=== PATIENT | female | born 1960 | race Caucasian/White ===

== ENCOUNTER 2017-10-18 14:49 | Emergency (ER) | payer MEDICAID ==
[~2017-10-18] VITALS: Ht 162.6 cm; Wt 63.6 kg
[~2017-10-18 14:49] MED LIST: ALBU8.5H8 IH; ASPI-974 PO; DOCU-28 PO; HYDR-569 PO; IMI20NS NS; LACT-28 PO; OMEP20TA23 PO; PHEN-716 PO
[2017-10-18 16:50] VITALS: BP 116/39
[2017-10-18] MEDS ORDERED: ondansetron 4mg rapidly disintigrating tab PO ONE (16:55)
[2017-10-18] MEDS ORDERED: ibuprofen tablet 400 MG TABLET PO ONE (16:55)
[2017-10-18] MEDS ORDERED: LOPE2CAP PO (17:04)
[2017-10-18] MEDS ORDERED: ONDA8TAB9 PO (17:04)
== END 2017-10-18 17:15 | disposition home or self-care (01) ==
LOC: ER 14:49
DX: R05 Cough (principal); R50.9 Fever, unspecified; M79.1 Myalgia; R11.2 Nausea with vomiting, unspecified; R19.7 Diarrhea, unspecified; M06.9 Rheumatoid arthritis, unspecified; F41.9 Anxiety disorder, unspecified; J45.909 Unspecified asthma, uncomplicated; Z88.1 Allergy status to other antibiotic agents; Z91.030 Bee allergy status; Z79.82 Long term (current) use of aspirin
CPT/HCPCS: 99283

== ENCOUNTER 2019-06-20 12:45 | Inpatient (IN) | payer MEDICAID ==
[~2019-06-20] VITALS: Ht 162.6 cm; Wt 63.6 kg
[~2019-06-20 12:45] MED LIST changes: +HYDR-4383 PO; -HYDR-569 PO; +LOPE2CAP PO; +ONDA8TAB9 PO
[2019-06-20] MEDS ORDERED: ketorolac tromethamine 15mg/ml inj. IV ONE (14:05)
[2019-06-20] MEDS ORDERED: clindamycin 150mg capsule PO ONE (14:35)
[2019-06-20] MEDS ORDERED: LIDOcaine 1% w/EPI 1:200,000 injection 10mL vial IM ONE (14:35)
[2019-06-20] MEDS ORDERED: LIDOcaine 1% W/epiNEPHrine 1:200,000 10ml vial IJ ONE (14:40)
[2019-06-20 14:49] LABS: BASOPHILS # (AUTO) 0.1 X10'3 (0-0.2); EOSINOPHILS # (AUTO) 0.1 X10'3 (0-0.9); EOSINOPHILS % (AUTO) 0.6 % (0-6); HEMATOCRIT 39.4 % (35.0-45.0); HEMOGLOBIN 13.2 g/dl (12.0-16.0); LYMPHOCYTES # (AUTO) 1.7 X10'3 (1.1-4.8); LYMPHOCYTES % (AUTO) 14.9 % (21-51); MEAN CORPUSCULAR HEMOGLOBIN 30.1 PG (27.0-31.0); MEAN CORPUSCULAR HGB CONC 33.4 g/dL (33.0-36.5); MEAN PLATELET VOLUME 7.7 FL (7.4-10.4); MONOCYTES # (AUTO) 1.2 X10'3 (0-0.9); MONOCYTES % (AUTO) 10.5 % (2-12); NEUTROPHILS # (AUTO) 8.3 X10'3 (1.8-7.7); PLATELET COUNT 339 X10'3 (140-440); RED BLOOD COUNT 4.38 X10'6 (4.20-5.60); RED CELL DISTRIBUTION WIDTH 14.3 % (11.5-14.5); WHITE BLOOD COUNT 11.3 X10'3 (4.5-11.0)
[2019-06-20 15:02] LABS: ALANINE AMINOTRANSFERASE 126 U/L (12-78); ALBUMIN 3.6 G/DL (3.4-5.0); ALBUMIN/GLOBULIN RATIO 0.8 (1.1-1.5); ALKALINE PHOSPHATASE 136 IU/L (46-116); ANION GAP 6 (8-16); ASPARTATE AMINO TRANSFERASE 120 U/L (10-37); BILIRUBIN,TOTAL 0.9 MG/DL (0.1-1.0); BLOOD UREA NITROGEN 9 MG/DL (7-18); BUN/CREATININE RATIO 11.7 (6.6-38.0); C-REACTIVE PROTEIN 12.29 MG/DL (0.0-0.5); CALCIUM 8.5 MG/DL (8.5-10.1); CHLORIDE 101 MMOL/L (99-107); CREATININE 0.77 MG/DL (0.40-0.90); GLUCOSE 81 MG/DL (70-104); POTASSIUM 3.4 MMOL/L (3.5-5.1); SODIUM 136 MMOL/L (135-145); TOTAL CARBON DIOXIDE 28.8 MMOL/L (24-32); TOTAL PROTEIN 7.9 G/DL (6.4-8.2); eGFR 77 ML/MIN
[2019-06-20] MEDS ORDERED: HYDROcodone/acetaminophen 10/325mg tab PO ONE (15:45)
[2019-06-20 16:02] LABS: APPEARANCE,SYNOVIAL FLUID CLOUDY; COLOR,SYNOVIAL FLUID RED
[2019-06-20 16:04] LABS: SYNOVIAL FLUID CRYSTALS QT NO CRYSTALS SEEN
[2019-06-20] MEDS ORDERED: vancomycin/NS 1 GM ADD-VANTAGE 250 ML X 1 DOSE IV ONE (16:55)
[2019-06-20] MEDS ORDERED: iohexol 300mg/ml 100ml inj. ONE (17:32)
--- NOTE | 2019-06-20 17:43 | NUR ---
pt to ct
[2019-06-20] MEDS ORDERED: ondansetron/PF 4mg/2ml inj IV ONE (18:15)
[2019-06-20] MEDS ORDERED: normal saline 1000ML IV soln IVB ONE (18:20)
[2019-06-20] MEDS ORDERED: SIMV10TA2 PO (19:50)
[2019-06-20] MEDS ORDERED: ALBU8.5H8 INH (19:50)
[2019-06-20] MEDS ORDERED: ERGO500041 PO (19:51)
[2019-06-20] MEDS ORDERED: TIZA2CAP PO (19:52)
[2019-06-20] MEDS ORDERED: morphine 2 MG/ML inj. syringe IV PRN ×2 (20:30)
--- NOTE | 2019-06-20 21:07 | NUR ---
Patient in room . I have received report from RAMY VENTURA and had the opportunity to ask questions and assume patient care.
[2019-06-20] MEDS ORDERED: albuterol 2.5 MG/3 ML nebule NEB PRN (21:25)
[2019-06-20 21:30] VITALS: BP 90/54
[2019-06-20] MEDS: potassium Cl 20mEq in NS 1,000 ML IV SCH (21:42)
[2019-06-20] MEDS ORDERED: tizanidine 4mg tablet PO PRN (22:20)
[2019-06-21] VITALS (17 sets, daily range): BP systolic 95–134; BP diastolic 33–79
[2019-06-21] MEDS: mag hydrox/Alum hydrox/simeth 30ml oral suspension PO PRN (01:16)
[2019-06-21] MEDS ORDERED: clindamycin 300mg/D5W 50mL 50 ML IV SCH (02:00)
--- NOTE | 2019-06-21 06:09 | NUR ---
Problems reprioritized. Patient report given, questions answered & plan of care reviewed with RAMY Escobedo.
[2019-06-21 06:56] LABS: BASOPHILS % (AUTO) 0.5 % (0-1); EOSINOPHILS # (AUTO) 0.1 X10'3 (0-0.9); EOSINOPHILS % (AUTO) 1.5 % (0-6); HEMATOCRIT 34.3 % (35.0-45.0); HEMOGLOBIN 11.9 g/dl (12.0-16.0); LYMPHOCYTES # (AUTO) 1.4 X10'3 (1.1-4.8); LYMPHOCYTES % (AUTO) 15.6 % (21-51); MEAN CORPUSCULAR HEMOGLOBIN 31.1 PG (27.0-31.0); MEAN CORPUSCULAR HGB CONC 34.8 g/dL (33.0-36.5); MEAN CORPUSCULAR VOLUME 89.4 FL (78-98); MEAN PLATELET VOLUME 8.1 FL (7.4-10.4); MONOCYTES # (AUTO) 0.7 X10'3 (0-0.9); MONOCYTES % (AUTO) 7.8 % (2-12); NEUTROPHILS # (AUTO) 6.9 X10'3 (1.8-7.7); NEUTROPHILS % (AUTO) 74.6 % (42-75); PLATELET COUNT 275 X10'3 (140-440); RED BLOOD COUNT 3.83 X10'6 (4.20-5.60); RED CELL DISTRIBUTION WIDTH 14.1 % (11.5-14.5); WHITE BLOOD COUNT 9.2 X10'3 (4.5-11.0)
[2019-06-21 07:01] LABS: ALANINE AMINOTRANSFERASE 122 U/L (12-78); ALBUMIN 2.9 G/DL (3.4-5.0); ALBUMIN/GLOBULIN RATIO 0.8 (1.1-1.5); ALKALINE PHOSPHATASE 133 IU/L (46-116); ANION GAP 10 (8-16); ASPARTATE AMINO TRANSFERASE 112 U/L (10-37); BILIRUBIN,TOTAL 0.8 MG/DL (0.1-1.0); BLOOD UREA NITROGEN 11 MG/DL (7-18); BUN/CREATININE RATIO 15.1 (6.6-38.0); CHLORIDE 105 MMOL/L (99-107); CREATININE 0.73 MG/DL (0.40-0.90); GLUCOSE 104 MG/DL (70-104); POTASSIUM 3.9 MMOL/L (3.5-5.1); SODIUM 139 MMOL/L (135-145); TOTAL CARBON DIOXIDE 23.7 MMOL/L (24-32); TOTAL PROTEIN 6.6 G/DL (6.4-8.2); eGFR 82 ML/MIN
[2019-06-21] MEDS: vancomycin/NS 1 GM ADD-VANTAGE 250 ML IV SCH ×2 (07:56→20:35)
[2019-06-21] MEDS: acetaminophen 325mg tablet PO PRN (08:06)
[2019-06-21] MEDS: lactobacillus rhamnosus 10,000 MMU CELLS/CAPSULE PO SCH ×2 (08:07→20:34)
[2019-06-21] MEDS ORDERED: morphine 2 MG/ML inj. syringe IV PRN (09:05)
[2019-06-21] MEDS: morphine 2 MG/ML inj. syringe IV PRN ×3 (09:26→23:00)
[2019-06-21] MEDS: potassium Cl 20mEq in NS 1,000 ML IV SCH ×2 (10:21→17:57)
[2019-06-21] MEDS: HYDROcodone/acetaminophen 5mg/325mg tablet PO PRN (12:40)
--- NOTE | 2019-06-21 13:05 | NUR ---
Patient report given to Sami in the OR
--- NOTE | 2019-06-21 13:13 | NUR ---
Dr. Gotti paged about gram pos. cocci in clusters for positive blood culture.
[2019-06-21] MEDS ORDERED: sevoflurane 250ml liquid IH ONE (13:34)
[2019-06-21] MEDS ORDERED: fentaNYL/PF 50MCG/1 ML 2ML syringe ONE (13:39)
[2019-06-21] MEDS ORDERED: midazolam 2 mg/2 ml injection ONE (13:39)
[2019-06-21] MEDS ORDERED: sugammadex 200mg/2ml injection IV ONE (13:57)
[2019-06-21] MEDS ORDERED: dexamethasone sod phosphate 4mg/ml inj. ONE (14:07)
[2019-06-21] MEDS ORDERED: rocuronium 10mg/ml inj IV ONE (14:07)
[2019-06-21] MEDS ORDERED: LIDOcaine 2% (20mg/ml) 5ml vial ONE (14:07)
[2019-06-21] MEDS ORDERED: propofol inj 20 ML IV ONE (14:07)
[2019-06-21] MEDS ORDERED: phenylephrine 10mg/ml inj. ONE (14:07)
[2019-06-21] MEDS ORDERED: ondansetron/PF 4mg/2ml inj ONE (14:07)
--- NOTE | 2019-06-21 14:10 | NUR ---
Received from OR via ORTHO BED, accompanied by Anesthesiologist DR. RAMIREZ and report given by Anesthesiolgist. PT ARRIVED WITH O2 VIA MASK AT 10L IN PLACE. MOVED ALL EXT WELL EXCEPT RT ELBOW WHICH IS PAINFUL AND HAS DRESSING LIMITING ROM. PULSES AND ASSISTANT PRODUCTION MANAGER ENL. DRESSING TO RT ELBOW CDI. SCDS IN PLACE.
--- NOTE | 2019-06-21 14:29 | NUR ---
I have received patient report from Elvia in recovery
--- NOTE | 2019-06-21 14:50 | NUR ---
Report called to receiving nurse HEAVEN MCCANN. Transferred via ORTHO BED TO ROOM 4009C. Belongings DENTURES ON BED. NO FAMILY IN WR ON TRANSFER. VSS ON 2L NC ON TRANSFER. Special Issues communicated to receiving nurse.
--- NOTE | 2019-06-21 18:54 | NUR ---
Problems reprioritized. Patient report given, questions answered & plan of care reviewed with Fanny Stinson RN.
[2019-06-21] MEDS ORDERED: atorvastatin 10mg tablet PO SCH (21:00)
[2019-06-22 02:00] VITALS: BP 95/55
[2019-06-22] MEDS: mag hydrox/Alum hydrox/simeth 30ml oral suspension PO PRN ×2 (02:10→17:59)
[2019-06-22 06:10] VITALS: BP 91/51
--- NOTE | 2019-06-22 06:45 | NUR ---
Problems reprioritized. Patient report given, questions answered & plan of care reviewed with Fanny Farmer RN.
[2019-06-22] MEDS ORDERED: VANCOMYCIN LEVEL IV ONE (07:30)
[2019-06-22 07:57] LABS: BASOPHILS % (AUTO) 0.4 % (0-1); EOSINOPHILS % (AUTO) 0.1 % (0-6); HEMATOCRIT 31.9 % (35.0-45.0); LYMPHOCYTES # (AUTO) 1.1 X10'3 (1.1-4.8); LYMPHOCYTES % (AUTO) 12.8 % (21-51); MEAN CORPUSCULAR HEMOGLOBIN 31.1 PG (27.0-31.0); MEAN CORPUSCULAR HGB CONC 34.6 g/dL (33.0-36.5); MEAN PLATELET VOLUME 8.3 FL (7.4-10.4); MONOCYTES # (AUTO) 0.6 X10'3 (0-0.9); MONOCYTES % (AUTO) 6.5 % (2-12); NEUTROPHILS # (AUTO) 6.9 X10'3 (1.8-7.7); NEUTROPHILS % (AUTO) 80.2 % (42-75); PLATELET COUNT 307 X10'3 (140-440); RED BLOOD COUNT 3.54 X10'6 (4.20-5.60); RED CELL DISTRIBUTION WIDTH 13.7 % (11.5-14.5); WHITE BLOOD COUNT 8.5 X10'3 (4.5-11.0)
[2019-06-22] MEDS: lactobacillus rhamnosus 10,000 MMU CELLS/CAPSULE PO SCH ×2 (08:00→19:21)
[2019-06-22] MEDS ORDERED: ergocalciferol (Vitamin D) 50,000 unit capsule PO SCH (08:00)
[2019-06-22] MEDS: vancomycin/NS 1 GM ADD-VANTAGE 250 ML IV SCH (08:01)
[2019-06-22] MEDS: HYDROcodone/acetaminophen 5mg/325mg tablet PO PRN ×2 (08:01→12:35)
[2019-06-22] MEDS: magnesium hydroxide 30ml (MOM) UD suspension PO PRN (08:04)
[2019-06-22 08:14] LABS: ALANINE AMINOTRANSFERASE 172 U/L (12-78); ALBUMIN 2.7 G/DL (3.4-5.0); ALBUMIN/GLOBULIN RATIO 0.7 (1.1-1.5); ALKALINE PHOSPHATASE 187 IU/L (46-116); ANION GAP 8 (8-16); ASPARTATE AMINO TRANSFERASE 165 U/L (10-37); BILIRUBIN,TOTAL 0.3 MG/DL (0.1-1.0); BLOOD UREA NITROGEN 10 MG/DL (7-18); BUN/CREATININE RATIO 15.2 (6.6-38.0); CALCIUM 8.3 MG/DL (8.5-10.1); CHLORIDE 109 MMOL/L (99-107); CREATININE 0.66 MG/DL (0.40-0.90); GLUCOSE 114 MG/DL (70-104); POTASSIUM 4.3 MMOL/L (3.5-5.1); SODIUM 141 MMOL/L (135-145); TOTAL CARBON DIOXIDE 23.7 MMOL/L (24-32); TOTAL PROTEIN 6.5 G/DL (6.4-8.2); eGFR > 90 ML/MIN
[2019-06-22] MEDS ORDERED: polyvinyl alcohol ophthalmic drops 15ml bottle EACHEYE PRN (09:10)
[2019-06-22 10:00] VITALS: BP 107/61
--- NOTE | 2019-06-22 17:53 | NUR ---
PAGER ID: [phone] MESSAGE: Patient Melany Cortés is having some anxiety. She hasn't peed all day but not retaining urine and her lungs are clear. Vitals normal. Fanny [phone]
[2019-06-22 18:00] VITALS: BP 121/69
[2019-06-22] MEDS ORDERED: LORazepam 0.5 MG tablet PO PRN (18:10)
--- NOTE | 2019-06-22 19:00 | NUR ---
Patient in room ORTHO 4016. I have received report from Fanny Eng RN and had the opportunity to ask questions and assume patient care.
--- NOTE | 2019-06-22 19:07 | NUR ---
Patient report given to Pérez MCCANN
[2019-06-22] MEDS: ondansetron/PF 4mg/2ml inj IV PRN (19:22)
[2019-06-22 22:00] VITALS: BP 113/44
[2019-06-22] MEDS: acetaminophen 325mg tablet PO PRN (22:35)
[2019-06-23] MEDS: HYDROcodone/acetaminophen 5mg/325mg tablet PO PRN ×3 (02:56→21:08)
[2019-06-23 06:00] VITALS: BP 105/58
[2019-06-23 06:52] LABS: BASOPHILS # (AUTO) 0.1 X10'3 (0-0.2); BASOPHILS % (AUTO) 0.8 % (0-1); EOSINOPHILS # (AUTO) 0.1 X10'3 (0-0.9); EOSINOPHILS % (AUTO) 1.2 % (0-6); HEMATOCRIT 34.1 % (35.0-45.0); HEMOGLOBIN 11.5 g/dl (12.0-16.0); LYMPHOCYTES # (AUTO) 1.9 X10'3 (1.1-4.8); LYMPHOCYTES % (AUTO) 23.4 % (21-51); MEAN CORPUSCULAR HEMOGLOBIN 30.8 PG (27.0-31.0); MEAN CORPUSCULAR HGB CONC 33.7 g/dL (33.0-36.5); MEAN CORPUSCULAR VOLUME 91.3 FL (78-98); MEAN PLATELET VOLUME 8.2 FL (7.4-10.4); MONOCYTES # (AUTO) 0.5 X10'3 (0-0.9); NEUTROPHILS # (AUTO) 5.5 X10'3 (1.8-7.7); NEUTROPHILS % (AUTO) 68.6 % (42-75); PLATELET COUNT 338 X10'3 (140-440); RED BLOOD COUNT 3.74 X10'6 (4.20-5.60)
[2019-06-23 07:09] LABS: ALANINE AMINOTRANSFERASE 149 U/L (12-78); ALBUMIN 2.8 G/DL (3.4-5.0); ALBUMIN/GLOBULIN RATIO 0.8 (1.1-1.5); ALKALINE PHOSPHATASE 209 IU/L (46-116); ANION GAP 9 (8-16); ASPARTATE AMINO TRANSFERASE 104 U/L (10-37); BILIRUBIN,TOTAL 0.5 MG/DL (0.1-1.0); BLOOD UREA NITROGEN 8 MG/DL (7-18); BUN/CREATININE RATIO 10.1 (6.6-38.0); CALCIUM 8.4 MG/DL (8.5-10.1); CHLORIDE 109 MMOL/L (99-107); CREATININE 0.79 MG/DL (0.40-0.90); GLUCOSE 86 MG/DL (70-104); POTASSIUM 3.8 MMOL/L (3.5-5.1); SODIUM 143 MMOL/L (135-145); TOTAL CARBON DIOXIDE 25.1 MMOL/L (24-32); TOTAL PROTEIN 6.5 G/DL (6.4-8.2); eGFR 74 ML/MIN
[2019-06-23] MEDS: lactobacillus rhamnosus 10,000 MMU CELLS/CAPSULE PO SCH ×2 (08:51→19:47)
[2019-06-23] MEDS ORDERED: LINE600T11 PO (09:28)
[2019-06-23] MEDS ORDERED: HYDR-4383 PO (09:28)
[2019-06-23 10:00] VITALS: BP 106/64
[2019-06-23] MEDS: morphine 2 MG/ML inj. syringe IV PRN (14:03)
[2019-06-23 18:30] VITALS: BP 120/67
[2019-06-23] MEDS: ondansetron/PF 4mg/2ml inj IV PRN (19:36)
[2019-06-23 21:57] VITALS: BP 118/64
[2019-06-24 06:00] VITALS: BP 112/69
[2019-06-24 06:56] VITALS: BP 112/69
[2019-06-24] MEDS ORDERED: VANCOMYCIN LEVEL IV ONE (07:30)
[2019-06-24 07:58] LABS: BASOPHILS # (AUTO) 0.1 X10'3 (0-0.2); BASOPHILS % (AUTO) 1.9 % (0-1); EOSINOPHILS # (AUTO) 0.4 X10'3 (0-0.9); EOSINOPHILS % (AUTO) 6.7 % (0-6); HEMATOCRIT 35.5 % (35.0-45.0); HEMOGLOBIN 12.1 g/dl (12.0-16.0); LYMPHOCYTES # (AUTO) 1.7 X10'3 (1.1-4.8); LYMPHOCYTES % (AUTO) 25.8 % (21-51); MEAN CORPUSCULAR HEMOGLOBIN 30.4 PG (27.0-31.0); MEAN CORPUSCULAR HGB CONC 34.2 g/dL (33.0-36.5); MEAN CORPUSCULAR VOLUME 88.9 FL (78-98); MEAN PLATELET VOLUME 7.9 FL (7.4-10.4); MONOCYTES # (AUTO) 0.5 X10'3 (0-0.9); MONOCYTES % (AUTO) 8.2 % (2-12); NEUTROPHILS # (AUTO) 3.8 X10'3 (1.8-7.7); NEUTROPHILS % (AUTO) 57.4 % (42-75); PLATELET COUNT 389 X10'3 (140-440); RED BLOOD COUNT 3.99 X10'6 (4.20-5.60); RED CELL DISTRIBUTION WIDTH 14.1 % (11.5-14.5); WHITE BLOOD COUNT 6.6 X10'3 (4.5-11.0)
[2019-06-24] MEDS: lactobacillus rhamnosus 10,000 MMU CELLS/CAPSULE PO SCH ×2 (08:01→19:22)
[2019-06-24 08:08] LABS: ALANINE AMINOTRANSFERASE 128 U/L (12-78); ALBUMIN 2.8 G/DL (3.4-5.0); ALBUMIN/GLOBULIN RATIO 0.6 (1.1-1.5); ALKALINE PHOSPHATASE 205 IU/L (46-116); ANION GAP 11 (8-16); ASPARTATE AMINO TRANSFERASE 61 U/L (10-37); BILIRUBIN,TOTAL 0.4 MG/DL (0.1-1.0); BLOOD UREA NITROGEN 6 MG/DL (7-18); BUN/CREATININE RATIO 8.7 (6.6-38.0); CALCIUM 8.7 MG/DL (8.5-10.1); CHLORIDE 107 MMOL/L (99-107); CREATININE 0.69 MG/DL (0.40-0.90); GLUCOSE 78 MG/DL (70-104); POTASSIUM 3.7 MMOL/L (3.5-5.1); SODIUM 143 MMOL/L (135-145); TOTAL CARBON DIOXIDE 25.2 MMOL/L (24-32); TOTAL PROTEIN 7.2 G/DL (6.4-8.2); VANCOMYCIN,TROUGH 17.9 UG/ML (6.0-14.0); eGFR 87 ML/MIN
[2019-06-24 10:00] VITALS: BP 137/77
[2019-06-24] MEDS: HYDROcodone/acetaminophen 10/325mg tab PO PRN ×2 (10:43→17:52)
--- NOTE | 2019-06-24 11:23 | NUR ---
Initial: Pt s/p I&D R elbow admit w/ MRSA bursitis per MD note. Pt 2016 admit was positive for amphetamines; no tox this admit. PO increasing to 50-75% avg meals decent given current wt. LBM 06/20. Will continue to monitor for additional protein needs this admit. Rec: 1. continue regular diet 2. monitor for ONS needs 3. wt per rx Addendum: 06/24/19 at [address] Amended: Links added.
[2019-06-24] MEDS: magnesium hydroxide 30ml (MOM) UD suspension PO PRN (16:27)
[2019-06-24 18:00] VITALS: BP 120/77
--- NOTE | 2019-06-24 18:44 | NUR ---
Patient in room ORTHO 4016. I have received report from Ruma MCCANN and had the opportunity to ask questions and assume patient care.
[2019-06-24 22:00] VITALS: BP 122/70
[2019-06-25] MEDS: HYDROcodone/acetaminophen 10/325mg tab PO PRN ×2 (04:08→10:56)
[2019-06-25 06:00] VITALS: BP 117/70
--- NOTE | 2019-06-25 06:06 | NUR ---
Problems reprioritized. Patient report given, questions answered & plan of care reviewed with Ruma MCCANN.
--- NOTE | 2019-06-25 06:30 | NUR ---
Patient in room ORTHO 4016. I have received report from RAMY Fofana and had the opportunity to ask questions and assume patient care.
[2019-06-25 06:31] LABS: BASOPHILS # (AUTO) 0.1 X10'3 (0-0.2); BASOPHILS % (AUTO) 1.5 % (0-1); EOSINOPHILS # (AUTO) 0.6 X10'3 (0-0.9); EOSINOPHILS % (AUTO) 11.8 % (0-6); HEMATOCRIT 36.2 % (35.0-45.0); HEMOGLOBIN 12.3 g/dl (12.0-16.0); LYMPHOCYTES # (AUTO) 1.5 X10'3 (1.1-4.8); MEAN CORPUSCULAR HEMOGLOBIN 30.4 PG (27.0-31.0); MEAN CORPUSCULAR HGB CONC 34.1 g/dL (33.0-36.5); MEAN CORPUSCULAR VOLUME 89.1 FL (78-98); MEAN PLATELET VOLUME 7.6 FL (7.4-10.4); MONOCYTES # (AUTO) 0.4 X10'3 (0-0.9); NEUTROPHILS # (AUTO) 2.6 X10'3 (1.8-7.7); NEUTROPHILS % (AUTO) 50.7 % (42-75); PLATELET COUNT 425 X10'3 (140-440); RED BLOOD COUNT 4.06 X10'6 (4.20-5.60); RED CELL DISTRIBUTION WIDTH 13.9 % (11.5-14.5)
[2019-06-25 06:56] LABS: ALANINE AMINOTRANSFERASE 100 U/L (12-78); ALBUMIN 2.8 G/DL (3.4-5.0); ALBUMIN/GLOBULIN RATIO 0.6 (1.1-1.5); ALKALINE PHOSPHATASE 198 IU/L (46-116); ANION GAP 10 (8-16); ASPARTATE AMINO TRANSFERASE 38 U/L (10-37); BILIRUBIN,TOTAL 0.4 MG/DL (0.1-1.0); BLOOD UREA NITROGEN 12 MG/DL (7-18); BUN/CREATININE RATIO 16.7 (6.6-38.0); CALCIUM 9.9 MG/DL (8.5-10.1); CHLORIDE 106 MMOL/L (99-107); CREATININE 0.72 MG/DL (0.40-0.90); GLUCOSE 101 MG/DL (70-104); POTASSIUM 4.1 MMOL/L (3.5-5.1); SODIUM 141 MMOL/L (135-145); TOTAL CARBON DIOXIDE 24.6 MMOL/L (24-32); TOTAL PROTEIN 7.2 G/DL (6.4-8.2); eGFR 83 ML/MIN
[2019-06-25] MEDS ORDERED: HYDR-3965 PO (08:07)
[2019-06-25] MEDS: lactobacillus rhamnosus 10,000 MMU CELLS/CAPSULE PO SCH (09:05)
[2019-06-25 10:00] VITALS: BP 119/81
--- NOTE | 2019-06-25 13:00 | NUR ---
Received discharge orders from Dr. Gotti with written RX's for Zyvox & [place]. Saline lock in left wrist discontinued with cannula intact. No redness swelling at insertion site. Bandaid applied over insertion site. Called RX for Zyvox to [facility] in [place]. RX for [place] given to pt to take to [facility]. Escorted pt to front lobby via w/c to private vehicle.
== END 2019-06-25 13:00 | disposition home or self-care (01) | DRG 710 ==
LOC: ER 12:46 → ORTHO 4S 21:25
PROVIDERS: ADMIT Internal Medicine; ATTEND Internal Medicine
PROC: BP2T1ZZ Computerized Tomography (CT Scan) of Right Upper Extremity using Low Osmolar Contrast (ICD-10-PCS; principal; 2019-06-20)
PROC: 0M930ZZ Drainage of Right Elbow Bursa and Ligament, Open Approach (ICD-10-PCS; 2019-06-21)
DX: A41.02 Sepsis due to Methicillin resistant Staphylococcus aureus (principal); M35.00 Sjogren syndrome, unspecified; E78.5 Hyperlipidemia, unspecified; F17.200 Nicotine dependence, unspecified, uncomplicated; J45.909 Unspecified asthma, uncomplicated; M06.9 Rheumatoid arthritis, unspecified; M71.121 Other infective bursitis, right elbow; F41.9 Anxiety disorder, unspecified; R74.0 Nonspecific elevation of levels of transaminase and lactic acid dehydrogenase [LDH]; Z88.1 Allergy status to other antibiotic agents; Z91.030 Bee allergy status; Z79.899 Other long term (current) drug therapy; Z98.891 History of uterine scar from previous surgery
CPT/HCPCS: 36415; 71045; 73080; 76700; 80053; 80202; 82948; 83605; 84145; 85025; 85610; 85651; 86140; 87040; 87070; 87075; 87077; 87081; 87186; 89051; 89060; 93005; 93306; 94640; 94760; 96365; 96366; 96375; 99285; A4618; A6446; A6449; A7000; C9399; G0378; J1100; J1885; J2001; J2250; J2270; J2370; J2405; J2704; J3010; J3370; J3480; J3490; J7120; Q9967

== ENCOUNTER 2022-12-25 17:00 | Emergency (ER) | payer MEDICAID ==
[~2022-12-25] VITALS: Ht 162.6 cm; Wt 65.9 kg
[~2022-12-25 17:00] MED LIST changes: +ALBU8.5H17 INH; -ALBU8.5H8 IH; -ASPI-974 PO; -DOCU-28 PO; +ERGO500041 PO; -HYDR-4383 PO; -IMI20NS NS; -LACT-28 PO; -LOPE2CAP PO; -OMEP20TA23 PO; -ONDA8TAB9 PO; -PHEN-716 PO; +TIZA2CAP PO
[2022-12-25 17:25] VITALS: BP 115/71
[2022-12-25] MEDS ORDERED: proCHLORperazine 10 MG/2 ml inj IM ONE (19:00)
== END 2022-12-25 19:24 | disposition home or self-care (01) ==
LOC: ER 17:00
DX: J06.9 Acute upper respiratory infection, unspecified (principal); B97.89 Other viral agents as the cause of diseases classified elsewhere; R05.9 Cough, unspecified; J45.909 Unspecified asthma, uncomplicated; M06.9 Rheumatoid arthritis, unspecified; F10.90 Alcohol use, unspecified, uncomplicated; G43.909 Migraine, unspecified, not intractable, without status migrainosus; Z87.81 Personal history of (healed) traumatic fracture; Z98.891 History of uterine scar from previous surgery; Z87.440 Personal history of urinary (tract) infections; Z88.8 Allergy status to other drugs, medicaments and biological substances; Z91.030 Bee allergy status; Z79.899 Other long term (current) drug therapy; Z87.891 Personal history of nicotine dependence; Y90.9 Presence of alcohol in blood, level not specified
CPT/HCPCS: 71045; 96372; 99283; J0780

== ENCOUNTER 2025-07-02 23:02 | Emergency (ER) | payer MEDICARE, MEDICAID ==
[~2025-07-02] VITALS: Ht 162.6 cm; Wt 70.5 kg
--- NOTE | 2025-07-02 23:51 | RADIOLOGY REPORT ---
CLINICAL INDICATION: WRIST PAIN LEFT TECHNIQUE: 3 views DI WRIST, COMPLETE (3VW MIN) Comparison: None FINDINGS: Mildly comminuted, nondisplaced intra-articular fracture of the distal radial metaphysis without significant impaction. Associated soft tissue swelling. No other identified fracture. Polyarticular osteoarthrosis. IMPRESSION: 1. Comminuted minimally displaced intra-articular left distal radius fracture.
[2025-07-03 02:25] VITALS: BP 135/67; PULSE 86; RESP 18; O2SAT 98
--- NOTE | 2025-07-03 02:56 | Physician Documentation ---
History of Present Illness ~ Chief Complaint: Mechanical Fall Stated Complaint: WRIST PAIN Time Seen by MD: 02:55 Primary Medical Doctor: Izaiah Skinner HPI Patient presents to the emergency room with left upper extremity wrist pain. She states she was walking her dogs and stepping off a step this has caused her to fall striking her left wrist and left head. No loss of consciousness and no vomiting and she is not on blood thinners. She denies neck pain. Tetanus within 5 Years?: No Medication Reconciliation Allergies: Coded Allergies: cefaclor (Verified Allergy, Severe, wheezing, 07/02/25) bee venom protein (honey bee) (Verified Allergy, Unknown, 07/02/25) Scheduled Albuterol Sulfate (Proair Hfa), 2 PUFFS INH Q4HPRN, (Reported) Ergocalciferol (Vitamin D2) (Vitamin D2), 1 CAP PO Q7D, (Reported) Scheduled PRN Hydrocodone Bit/Acetaminophen 5/325 MG (Errol 5/325 MG), 1-2 TAB PO Q4-6 hours PRN for pain Tizanidine Hcl (Zanaflex), 1 CAP PO Q8H PRN for muscle spasms, (Reported) Past Medical History Past Medical History: Asthma, UTI, Extremity Fracture, Rheumatoid Arthritis, Anxiety Past Surgical History: Alcohol Use: Occasionally Drug Use: none Lives with: Family Lives In: Home Occupation: employed Review of Systems ROS All review of systems negative except as per HPI Physical Exam Vital Signs: Temperature: 97.6, Source: Oral, Heart Rate: 86, Respiratory Rate: 18, BP: 135/67, Pulse Oximetry: 98, Weight: 70.450 Oxygen Flow Rate: 0 Physical Exam General: Patient is awake, alert, oriented x4 in no acute distress Head: Normocephalic with no appreciable trauma Eyes: Conjunctival normal. EOMI. PERRL. ENT: Mucous membranes moist. Negative angeles signs, negative raccoon eyes, negative hemotympanum, negative rhinorrhea Neck: Supple, trachea is midline. No cervical midline tenderness Chest: Clear to auscultation bilaterally without rales, rhonchi, or wheezes. There is no accessory muscle use or retractions. Cardiac: RRR without murmurs, gallops, or rubs. Extremities: Right upper extremity normal. left upper extremity with swelling and pain with tenderness to palpation of left wrist. Tenderness to palpation in anatomical snuffbox. Neurovascularly intact Progress Results/Orders Results/Orders Orders - MED HOLGUIN MD Wrist, Complete (3vw Min) (07/02/25 23:39) Completed Orders - MED HOLGUIN MD Wrist, Complete (3vw Min) (07/02/25 23:39) Vital Signs 07/02/25 07/03/25 23:14 02:25 Temp 97.6 Pulse 80 86 Resp 16 18 B/P (MAP) 108/64 135/67 (89) Pulse Ox 99 98 O2 Flow Rate 0 Medical Decision Making Findings Patient presents to the emergency room with pain to her left wrist as per HPI. Differentials include but are not limited to fractures, dislocations, soft tissue injury therefore x-ray was performed which confirmed fracture. Patient placed in thumb spica. Neurovascularly intact status post thumb spica placement. Physical exam is reassuring of patient's head and he had not feel she requires CT scan. Departure Disposition: 01 HOME / SELF CARE / HOMELESS Impression: Primary Impression: Wrist fracture Condition: Stable Discharge Instructions: Radial Fracture Additional Instructions: Ibuprofen and Tylenol may be taken together for pain. Ice may be of benefit. Frostbite precautions. Keep wrist elevated Referrals: NO PRIMARY CARE PROVIDER (PCP) JAYLA PEDRO MD Prescriptions Hydrocodone Bit/Acetaminophen 5/325 MG (Errol 5/325 MG) 5 Mg/325 Mg Tablet 1-2 TAB PO Q4-6 hours PRN for pain, #12 TAB Prov: MED HOLGUIN MD 07/03/25 Education Educated: Patient Educated regarding: diagnosis, treatment, need for follow up Signature Scribe Signature: No scribe Attestation: The note accurately reflects work and decisions made by me.Med Holguin MD 07/03/25 03:14 MED HOLGUIN MD Jul 03, 2025 02:56
[2025-07-03] MEDS ORDERED: HYDR-3965 PO (03:12)
[2025-07-03 03:16] VITALS: TEMP 97.6
== END 2025-07-03 03:49 | disposition home or self-care (01) ==
LOC: ER 23:03
DX: S52.572A Other intraarticular fracture of lower end of left radius, initial encounter for closed fracture (principal); J45.909 Unspecified asthma, uncomplicated; F41.9 Anxiety disorder, unspecified; Z87.440 Personal history of urinary (tract) infections; Z91.030 Bee allergy status; Z88.1 Allergy status to other antibiotic agents; Z79.899 Other long term (current) drug therapy; Z72.89 Other problems related to lifestyle; X58.XXXA Exposure to other specified factors, initial encounter; Y93.01 Activity, walking, marching and hiking; Y92.89 Other specified places as the place of occurrence of the external cause; Y99.8 Other external cause status
CPT/HCPCS: 29125; 73110; 99284